=== PATIENT | female | born 1970 | race Caucasian/White ===

== ENCOUNTER 2017-06-09 16:10 | Observation (INO) | payer SELFPAY ==
[~2017-06-09] VITALS: Ht 157.5 cm; Wt 42.0 kg
[2017-06-09 16:13] VITALS: BP 165/74; PULSE 53; RESP 16; TEMP 98.1; O2SAT 99
[2017-06-09] MEDS ORDERED: SODIUM CHLORIDE 0.9% FLUSH 10 ML FLUSH IVF PRN (16:45)
[2017-06-09] MEDS ORDERED: MORPHINE SULFATE 4 MG/ML INJ IV PUSH ONE ×2 (16:45→22:00)
[2017-06-09] MEDS ORDERED: ONDANSETRON HCL 4 MG/2 ML VIAL IV PUSH ONE (16:45)
[2017-06-09] MEDS ORDERED: SODIUM CHLOR 0.9% 1000 ML INJ 1,000 ML IV ONE (16:45)
[2017-06-09 17:06] LABS: AUTOMATED NEUTROPHIL # 4.4 TH/MM3 (1.8-7.7); BASOPHIL # 0.3 TH/MM3 (0-0.2); BASOPHIL % 4.3 % (0.0-2.0); EOSINOPHIL # 0.1 TH/MM3 (0-0.4); EOSINOPHIL % 1.3 % (0.0-4.0); HEMATOCRIT 43.2 % (35.0-46.0); HEMOGLOBIN 14.3 GM/DL (11.6-15.3); LYMPH % 33.1 % (9.0-44.0); LYMPHOCYTE # 2.5 TH/MM3 (1.0-4.8); MEAN CELL VOLUME 86.3 FL (80.0-100.0); MEAN CORPUSCULAR HEMOGLOBIN 28.5 PG (27.0-34.0); MEAN CORPUSCULAR HGB CONC 33.1 % (32.0-36.0); MEAN PLATELET VOLUME 8.5 FL (7.0-11.0); MONO % 5.8 % (0.0-8.0); MONOCYTE # 0.4 TH/MM3 (0-0.9); NEUT % 55.5 % (16.0-70.0); PLATELET COUNT 258 TH/MM3 (150-450); RED BLOOD COUNT 5.01 MIL/MM3 (4.00-5.30); RED CELL DISTRIBUTION WIDTH 12.2 % (11.6-17.2); WHITE BLOOD COUNT 7.7 TH/MM3 (4.0-11.0)
[2017-06-09 17:12] LABS: CHLORIDE 104 MEQ/L (98-107); SODIUM (NA) 139 MEQ/L (136-145)
[2017-06-09 17:15] LABS: CALCIUM 9.2 MG/DL (8.5-10.1)
[2017-06-09 17:16] LABS: BICARBONATE 28.2 MEQ/L (21.0-32.0); BLOOD UREA NITROGEN 7 MG/DL (7-18); GLUCOSE,RANDOM 112 MG/DL (74-106); MAGNESIUM 2.3 MG/DL (1.5-2.5)
[2017-06-09 17:19] LABS: CREATININE 0.67 MG/DL (0.50-1.00); GLOMERULAR FILTRATION RATE 94 ML/MIN (>89)
[2017-06-09 17:22] LABS: INTERNATIONAL NORMALIZED RATIO 1.1 RATIO; PROTHROMBIN TIME - PATIENT 11.4 SEC (9.8-11.6)
[2017-06-09 17:24] LABS: TROPONIN I LESS THAN 0.02 NG/ML (0.02-0.05)
[2017-06-09] MEDS ORDERED: IOHEXOL 350 MG/ML 10 ML VIAL (for RAD DIAG) IVCONTRAST ONE (17:43)
--- NOTE | 2017-06-09 17:50 | RADRPT ---
EXAM DATE/TIME: 06/09/2017 17:34 [place] COMPARISON: No previous studies available for comparison. INDICATIONS : Left chest and upper back pain. IV CONTRAST: 75 cc Omnipaque 350 (iohexol) IV RADIATION DOSE: 5.44 CTDIvol (mGy) MEDICAL HISTORY : Myocardial infarction. SURGICAL HISTORY : Appendectomy. CABGCesarean section. ENCOUNTER: Initial ACUITY: 1 day PAIN SCALE: 7/10 LOCATION: Left chest TECHNIQUE: Volumetric scanning of the chest was performed using a pulmonary embolism protocol MIP images were re constructed. Using automated exposure control and adjustment of the mA and/or kV according to patien t size, radiation dose was kept as low as reasonably achievable to obtain optimal diagnostic quality images. DICOM format image data is available electronically for review and comparison. Follow-up recommendations for detected pulmonary nodules are based at a minimum on nodule size and pa tient risk factors according to Fleischner Society Guidelines. FINDINGS: PULMONARY ARTERIES: No filling defects are seen in the pulmonary arteries through the segmental level. LUNGS: There is no consolidation or pneumothorax . No concerning pulmonary nodule is visualized. There is mild emphysematous change with small air-containing sacs in the upper lungs. PLEURAE: There is no pleural thickening or pleural effusion. MEDIASTINUM: There is good visualization of the great vessels of the middle mediastinum. No evidence of mediastin al or hilar adenopathy/mass. CONCLUSION: 1. The study is negative for pulmonary embolism. 2. Mild emphysematous change in both lungs. Fili Fermin MD on June 09, 2017 at 17:46 Board Certified Radiologist. This report was verified electronically.
--- NOTE | 2017-06-09 18:14 | PD ---
HPI Chief Complaint: Chest Pain Time Seen by Provider: 16:32 Travel History International Travel<30 days: No Contact w/Intl Traveler<30days: No Traveled to known affect area: No History of Present Illness HPI 46 Female complains of numbness in the region of the left posterior shoulder which is also painful. She feels discomfort in the left chest as well. Duration is been about 90 minutes. She reports pleuritic chest pain as well. She also describes total body weakness. Occasional diaphoresis reported. No cough or fever. Patient reports positive history of myocardial infarction with stents placed in 2011 and 2013. She reports occasional usage of aspirin and correlation with chest pain symptoms due to blood thinning. PFSH Past Medical History Myocardial Infarction: Yes Influenza Vaccination: No ?: Not Past Surgical History Appendectomy: Yes Section: Yes Hysterectomy: Yes Tonsillectomy: Yes Social History Alcohol Use: No Tobacco Use: Yes (/ PPD) Allergies-Medications (Allergen,Severity, Reaction): Coded Allergies: Penicillins (Verified Allergy, Mild, 06/09/17) Review of Systems Except as stated in HPI: all other systems reviewed are Neg General / Constitutional: No: Fever Eyes: No: Diploplia Physical Exam Narrative GENERAL: 46-year-old female well-nourished well-developed no acute distress Vital Signs Date Time Temp Pulse Resp B/P (MAP) Pulse Ox O2 Delivery O2 Flow Rate FiO2 06/09/17 16:13 98.1 53 16 165/74 (104) 99 SKIN: Warm and dry. HEAD: Atraumatic. Normocephalic. EYES: Pupils equal and round. No scleral icterus. No injection or drainage. ENT: No nasal bleeding or discharge. Mucous membranes pink and moist. NECK: Trachea midline. No JVD. CARDIOVASCULAR: Regular rate and rhythm. RESPIRATORY: No accessory muscle use. Clear to auscultation. Breath sounds equal bilaterally. GASTROINTESTINAL: Abdomen soft, non-tender, nondistended. Hepatic and splenic margins not palpable. MUSCULOSKELETAL: Extremities without clubbing, tenderness palpation along the left perithoracic musculature. NEUROLOGICAL: Awake and alert. No obvious cranial nerve deficits. Motor grossly within normal limits. Five out of 5 muscle strength in the arms and legs. Normal speech. PSYCHIATRIC: Appropriate mood and affect; insight and judgment normal. Data Data Last Documented VS Vital Signs Date Time Temp Pulse Resp B/P (MAP) Pulse Ox O2 Delivery O2 Flow Rate FiO2 06/09/17 16:13 98.1 53 16 165/74 (104) 99 Orders Orders Electrocardiogram (06/09/17 16:32) Basic Metabolic Panel (Bmp) (06/09/17 16:32) Ckmb (Isoenzyme) Profile (06/09/17 16:32) Complete Blood Count With Diff (06/09/17 16:32) Magnesium (Mg) (06/09/17 16:32) Prothrombin Time / Inr (Pt) (06/09/17 16:32) Act Partial Throm Time (Ptt) (06/09/17 16:32) Troponin I (06/09/17 16:32) Ecg Monitoring (06/09/17 16:32) Bilateral Bp Monitoring (06/09/17 16:32) Iv Access Insert/Monitor (06/09/17 16:32) Oximetry (06/09/17 16:32) Oxygen Administration (06/09/17 16:32) Sodium Chloride 0.9% Flush (Ns Flush) (06/09/17 16:45) Ct Pulmonary Angiogram (06/09/17 16:32) Morphine Inj (Morphine Inj) (06/09/17 16:45) Ondansetron Inj (Zofran Inj) (06/09/17 16:45) Sodium Chlor 0.9% 1000 Ml Inj (Ns 1000 M (06/09/17 16:45) Iohexol 350 Inj (Omnipaque 350 Inj) (06/09/17 17:43) Aspirin (Aspirin) (06/09/17 18:30) Admit Order (Ed Use Only) (06/09/17 ) Audiology Technician / Telemetry [id number].[id number] (06/09/17 18:26) Vital Signs (Adult) Q4H (06/09/17 18:26) Diet Heart Healthy (06/09/17 Dinner) Activity Bed Rest (06/09/17 18:26) Notify Dr: Other (06/09/17 18:26) Labs Laboratory Tests Test 06/09/17 16:30 White Blood Count 7.7 TH/MM3 Red Blood Count 5.01 MIL/MM3 Hemoglobin 14.3 GM/DL Hematocrit 43.2 % Mean Corpuscular Volume 86.3 FL Mean Corpuscular Hemoglobin 28.5 PG Mean Corpuscular Hemoglobin Concent 33.1 % Red Cell Distribution Width 12.2 % Platelet Count 258 TH/MM3 Mean Platelet Volume 8.5 FL Neutrophils (%) (Auto) 55.5 % Lymphocytes (%) (Auto) 33.1 % Monocytes (%) (Auto) 5.8 % Eosinophils (%) (Auto) 1.3 % Basophils (%) (Auto) 4.3 % Neutrophils # (Auto) 4.4 TH/MM3 Lymphocytes # (Auto) 2.5 TH/MM3 Monocytes # (Auto) 0.4 TH/MM3 Eosinophils # (Auto) 0.1 TH/MM3 Basophils # (Auto) 0.3 TH/MM3 CBC Comment DIFF FINAL Differential Comment Prothrombin Time 11.4 SEC Prothromb Time International Ratio 1.1 RATIO Activated Partial Thromboplast Time 26.7 SEC Blood Urea Nitrogen 7 MG/DL Creatinine 0.67 MG/DL Random Glucose 112 MG/DL Calcium Level 9.2 MG/DL Magnesium Level 2.3 MG/DL Sodium Level 139 MEQ/L Potassium Level 3.3 MEQ/L Chloride Level 104 MEQ/L Carbon Dioxide Level 28.2 MEQ/L Anion Gap 7 MEQ/L Estimat Glomerular Filtration Rate 94 ML/MIN Total Creatine Kinase 53 U/L Troponin I LESS THAN 0.02 NG/ML MDM Medical Decision Making Medical Screen Exam Complete: Yes Emergency Medical Condition: Yes Differential Diagnosis NSTEMI, unstable angina, coronary vasospasm, PE, PTX, aortic dissection, pericarditis, myocarditis, endocarditis, PNA, esophageal disease, aneurysm, musculoskeletal etiologies, anxiety, cocaine/sympathomimetic abuse Narrative Course CBC & BMP Diagram 06/09/17 16:30 Calcium Level 9.2, Magnesium Level 2.3 Tn < 0.[address] Angiography 06/09/17 1632 Signed Impressions: Service Date/Time: June 17:34 - CONCLUSION: 1. The study is negative for pulmonary embolism. 2. Mild emphysematous change in both lungs. Fili Fermin MD EKG shows a rate of 54 with T-wave inversions in V3 and V4 Pain marginal improvement with morphine. The patient will stay for chest pain center protocol. Case discussed with [facility] Dr Dietrich Diagnosis Primary Impression: Emphysema lung Qualified Codes: J43.9 - Emphysema, unspecified Additional Impressions: Chest pain at rest Hypokalemia Admitting Information Admitting Physician Requests: Observation Dean Waite MD Jun 09, 2017 18:14
[2017-06-09] MEDS ORDERED: ASPIRIN 325 MG TAB PO ONE (18:30)
[2017-06-09 19:00] VITALS: BP_SYST 122; BP_SYST 154; BP_DIAS 78; BP_DIAS 91; PULSE 59; RESP 16; O2SAT 99
[2017-06-09 20:01] VITALS: BP 144/77; PULSE 54; RESP 16; O2SAT 98
[2017-06-09 21:00] VITALS: BP 157/80; PULSE 54; RESP 16; O2SAT 97
[2017-06-09 21:15] VITALS: BP 156/72; PULSE 54; RESP 18; O2SAT 97
[2017-06-09] MEDS ORDERED: NICOTINE 21 MG/24 HR PATCH T-DERMAL ONE (22:00)
--- NOTE | 2017-06-10 05:42 | EKG ---
Date Performed: 06/09/2017 Time Performed: 16:17:58 PTAGE: 46 years EKG: SINUS BRADYCARDIA WITH SHORT [place] INTERVAL LEFT AXIS DEVIATION SEPTAL MYOCARDIAL INFARCTION T -WAVE ABNORMALITY, CONSIDER ANTERIOR ISCHEMIA ABNORMAL ECG NO PREVIOUS TRACING DOCTOR: Lauri Verduzco Interpretating Date/Time 06/10/2017 05:41:46
== END 2017-06-10 00:45 | disposition left against medical advice (07) ==
LOC: PHED 16:10 → PHEDA 18:27
PROVIDERS: ADMIT Hospitalist; ATTEND Hospitalist
DX: J43.9 Emphysema, unspecified (principal); R07.89 Other chest pain; E87.6 Hypokalemia; R20.0 Anesthesia of skin; M25.512 Pain in left shoulder; R53.1 Weakness; R61 Generalized hyperhidrosis; I25.2 Old myocardial infarction; R00.1 Bradycardia, unspecified; R94.31 Abnormal electrocardiogram [ECG] [EKG]; F17.200 Nicotine dependence, unspecified, uncomplicated; Z95.5 Presence of coronary angioplasty implant and graft
CPT/HCPCS: 71275; 80048; 82550; 83735; 84484; 85025; 85610; 85730; 93005; 96361; 96374; 99285; G0378; J2270; J2405; J7030; Q9967